=== PATIENT | male | born 1975 | race Two or more races ===

== ENCOUNTER 2024-04-29 23:43 | Inpatient (IN) | payer SELFPAY ==
[~2024-04-29] VITALS: Ht 182.9 cm; Wt 121.3 kg
[2024-04-30] VITALS (8 sets, daily range): BP systolic 189–222; BP diastolic 105–149; PULSE 84–106; RESP 16–22; TEMP 98–98.5; O2SAT 94–98
[2024-04-30 00:16] LABS: Basophils # (auto) 0.1 10 ^3/uL (0-0.2); Basophils % (auto) 0.9 % (0.0-2.0); Eosinophils # (auto) 0.4 10 ^3/uL (0-0.8); Eosinophils % (auto) 5.5 % (0.0-7.0); Hematocrit 48.4 % (41.0-53.0); Hemoglobin 16.8 g/dL (13.5-17.5); Lymphocytes # (auto) 1.6 10 ^3/uL (0.4-5.4); Mean Corpuscular Hemoglobin 30.6 pg (28.0-32.0); Mean Corpuscular Hgb Conc. 34.7 g/dL (32.0-36.0); Mean Corpuscular Volume 88.3 fL (80.0-100.0); Monocytes # (auto) 0.7 10 ^3/uL (0-1.3); Monocytes % (auto) 7.9 % (0.0-12.0); Neutrophils # (auto) 5.5 10 ^3/uL (1.6-8.6); Neutrophils % (auto) 66.7 % (37.0-80.0); Platelet Count (auto) 207 10^3/uL (140-450); Red Blood Cells 5.48 10^6/uL (4.5-5.90); Red Cell Distribution Width 14.4 % (11.8-14.3); White Blood Cell 8.2 10^3/uL (4.4-10.8)
[2024-04-30] MEDS: IOHEXOL 350 MG/ML 100ML IJ ONE (00:32)
[2024-04-30] MEDS: SODIUM CHLORIDE 0.9% 1,000 ML IV ONE (00:35)
[2024-04-30 00:38] LABS: Alanine Aminotransferase 20 U/L (7-40); Albumin 4.8 g/dL (3.2-4.8); Alkaline Phosphatase 81 U/L (46-116); Anion Gap 12 (5-15); Aspartate Aminotransferase 22 U/L (13-40); BUN/Creatinine Ratio 10.8 (10.0-20.0); Blood Urea Nitrogen 14 mg/dL (9-23); Calcium 9.7 mg/dL (8.7-10.4); Carbon Dioxide 22 mmol/L (20-31); Chloride 109 mmol/L (98-107); Glucose 96 mg/dL (74-106); Lipase 38 U/L (12-53); Potassium 3.2 mmol/L (3.5-5.1); Sodium 143 mmol/L (136-145); Total Protein 7.4 g/dL (5.7-8.2)
[2024-04-30 00:59] LABS: INR 1.05 (0.9-1.15); Prothrombin Time 11.1 sec (9.3-11.8)
[2024-04-30 01:33] LABS: Urine Bacteria None Seen /hpf (None Seen)
[2024-04-30] MEDS: hydrALAZINE HCL 20 MG/ML VL IV ONE ×3 (01:45→16:30)
[2024-04-30 01:58] LABS: Urine Blood Negative /uL (Negative); Urine Clarity Clear (Clear); Urine Color Colorless (Yellow); Urine Protein, UAD Negative (Negative); Urine Specific Gravity 1.022 (1.001-1.035); Urine Urobilinogen Normal (Negative); Urine WBC <1 /hpf (0 - 3); Urine pH 6.5 (5.0-9.0)
[2024-04-30] MEDS: LABETALOL HCL 20 MG/4 ML VL IV ONE (03:31)
[2024-04-30] MEDS ORDERED: MORPHINE SULFATE INJ 2 MG/ml SYRG IV PRN (05:30)
[2024-04-30] MEDS ORDERED: ONDANSETRON HCL 4 MG/2 ML VIAL IV PRN (05:30)
[2024-04-30] MEDS ORDERED: ACETAMINOPHEN 325 MG TAB PO PRN (05:30)
[2024-04-30] MEDS ORDERED: NITROGLYCERIN 0.4 MG SL TAB SL PRN (05:30)
[2024-04-30] MEDS: POTASSIUM CHL 20 Meq TABLET PO ONE (08:04)
[2024-04-30] MEDS: hydrALAZINE HCL 20 MG/ML VL IV PRN ×2 (08:15→16:22)
[2024-04-30] MEDS: ATORVASTATIN 20 MG TAB PO SCH (09:15)
[2024-04-30 09:35] LABS: Triglycerides 98 mg/dL (< 150)
[2024-04-30 09:36] LABS: LDL Cholesterol 141 mg/dL (< 100)
[2024-04-30 09:37] LABS: Cholesterol 202 mg/dL (< 200); HDL Cholesterol 45 mg/dL (40-59)
[2024-04-30] MEDS: POTASSIUM EFFERVESENT TAB 25 MEQ PO ONE (09:45)
[2024-04-30] MEDS: ASPirin 81 mg TAB PO SCH (10:00)
[2024-04-30] MEDS: CLOPIDOGREL BISULFATE 75 MG TAB PO SCH (10:00)
[2024-04-30] MEDS: LISINOPRIL 5 MG TAB PO SCH (10:00)
[2024-04-30] MEDS: SODIUM CHLORIDE 0.9% 1,000 ML IV SCH (10:54)
[2024-04-30] MEDS: ASPirin 300 MG RECTAL SUPP PR SCH (11:01)
[2024-04-30 11:34] LABS: Anion Gap 8 (5-15); Carbon Dioxide 24 mmol/L (20-31); Chloride 109 mmol/L (98-107); Potassium 3.1 mmol/L (3.5-5.1); Sodium 141 mmol/L (136-145)
[2024-04-30 11:35] LABS: Calcium 9.7 mg/dL (8.7-10.4)
[2024-04-30 11:40] LABS: BUN/Creatinine Ratio 9.2 (10.0-20.0); Blood Alcohol < 3.0 mg/dL (<10); Blood Urea Nitrogen 11 mg/dL (9-23); Glucose 110 mg/dL (74-106); Magnesium 2.1 mg/dL (1.6-2.6)
[2024-04-30 13:36] LABS: Amphetamine Screen, Urine Neg (NEGATIVE); Barbiturate Scree,Urine Neg (NEGATIVE); Benzodiazephine Screen, Urine Neg (NEGATIVE); Cannabinoid Screen, Urine Neg (NEGATIVE); Cocaine Screen, Urine Neg (NEGATIVE); Opiate Scree,Urine Neg (NEGATIVE); Phencyclidine Screen, Urine Neg (NEGATIVE)
[2024-04-30] MEDS: POTASSIUM CHLORIDE 40 MEQ, LIDOCAINE 1% (LOCAL ANESTH.) 4 ML in SODIUM CHL 0.9% 250 ML IV ONE (15:30)
[2024-04-30] MEDS: NIFEdipine ER 30 MG TAB PO ONE (16:30)
[2024-04-30] MEDS ORDERED: ATORVASTATIN 20 MG TAB PO SCH (22:00)
[2024-05-01] VITALS (13 sets, daily range): BP systolic 112–169; BP diastolic 64–142; PULSE 83–102; RESP 12–18; TEMP 97.2–98.3; O2SAT 95–98
[2024-05-01] MEDS: POTASSIUM CHLORIDE 40 MEQ, LIDOCAINE 1% (LOCAL ANESTH.) 4 ML in SODIUM CHL 0.9% 250 ML IV ONE (06:13)
[2024-05-01 07:03] LABS: Basophils # (auto) 0.1 10 ^3/uL (0-0.2); Basophils % (auto) 0.6 % (0.0-2.0); Eosinophils # (auto) 0.3 10 ^3/uL (0-0.8); Eosinophils % (auto) 2.5 % (0.0-7.0); Hematocrit 48.7 % (41.0-53.0); Hemoglobin 17.3 g/dL (13.5-17.5); Lymphocytes # (auto) 1.5 10 ^3/uL (0.4-5.4); Lymphocytes % (auto) 15.1 % (10.0-50.0); Mean Corpuscular Hemoglobin 31.3 pg (28.0-32.0); Mean Corpuscular Hgb Conc. 35.6 g/dL (32.0-36.0); Mean Corpuscular Volume 88.1 fL (80.0-100.0); Monocytes # (auto) 0.9 10 ^3/uL (0-1.3); Neutrophils # (auto) 7.4 10 ^3/uL (1.6-8.6); Neutrophils % (auto) 72.8 % (37.0-80.0); Nucleated Red Blood Cells % 0.1 %; Platelet Count (auto) 246 10^3/uL (140-450); Red Blood Cells 5.53 10^6/uL (4.5-5.90); Red Cell Distribution Width 14.5 % (11.8-14.3); White Blood Cell 10.2 10^3/uL (4.4-10.8)
[2024-05-01 07:20] LABS: Chloride 107 mmol/L (98-107); Sodium 140 mmol/L (136-145)
[2024-05-01 07:22] LABS: Anion Gap 12 (5-15); Carbon Dioxide 21 mmol/L (20-31)
[2024-05-01 07:23] LABS: BUN/Creatinine Ratio 8.6 (10.0-20.0); Blood Urea Nitrogen 10 mg/dL (9-23); Calcium 10.1 mg/dL (8.7-10.4); Glucose 115 mg/dL (74-106)
[2024-05-01] MEDS: fentaNYL CITRATE 100 MCG/2 ML VL IV ONE ×2 (09:15→10:18)
[2024-05-01] MEDS: LIDOCAINE VISCOUS 2% 15ML UD MT ONE (09:15)
[2024-05-01] MEDS: MIDAZOLAM HCL 2MG/2ML 2ml VIAL (1mg/ml) IV ONE ×2 (09:15→10:18)
[2024-05-01] MEDS: POTASSIUM CHLORIDE 60 MEQ, LIDOCAINE 1% (LOCAL ANESTH.) 6 ML in SODIUM CHL 0.9% 500 ML IV ONE (10:12)
[2024-05-01] MEDS: LIDOCAINE VISCOUS 2% 15ML UD PO ONE (10:15)
[2024-05-01] MEDS: NIFEdipine ER 30 MG TAB PO SCH (16:50)
[2024-05-02 01:00] VITALS: BP_SYST 155; BP_SYST 157; BP_DIAS 95; PULSE 79; RESP 17; TEMP 97.1; O2SAT 95
[2024-05-02 05:00] VITALS: BP_SYST 151; BP_SYST 154; BP_DIAS 94; BP_DIAS 95; PULSE 80; RESP 18; TEMP 97.3; O2SAT 95
[2024-05-02 09:28] VITALS: BP 156/94; PULSE 83; RESP 17; TEMP 97.6; O2SAT 97
[2024-05-02] MEDS: LISINOPRIL 20 MG TAB PO SCH (09:31)
[2024-05-02] MEDS: ASPirin 81 mg TAB PO SCH (09:32)
[2024-05-02 10:29] LABS: Chloride 107 mmol/L (98-107); Potassium 3.5 mmol/L (3.5-5.1); Sodium 139 mmol/L (136-145)
[2024-05-02 10:30] LABS: Anion Gap 7 (5-15); Carbon Dioxide 25 mmol/L (20-31)
[2024-05-02 10:35] LABS: BUN/Creatinine Ratio 9.2 (10.0-20.0); Blood Urea Nitrogen 11 mg/dL (9-23); Glucose 102 mg/dL (74-106)
[2024-05-02 13:00] VITALS: BP 134/83; PULSE 78; RESP 17; TEMP 97.5; O2SAT 98
[2024-05-02] MEDS ORDERED: hydrALAZINE HCL 20 MG/ML VL IV PRN (13:30)
[2024-05-02] MEDS ORDERED: ATOR20TA50 PO (13:36)
[2024-05-02] MEDS ORDERED: ASPI-325 PO (13:36)
[2024-05-02] MEDS ORDERED: NIFE1TAB31 PO (13:36)
[2024-05-02] MEDS ORDERED: CLOP75TA70 PO (13:36)
[2024-05-02] MEDS ORDERED: LISI20TA56 PO (13:36)
[2024-05-02 16:40] VITALS: PULSE 69
[2024-05-02 17:34] VITALS: BP 141/94; PULSE 76; RESP 16; TEMP 97.6; O2SAT 96
== END 2024-05-02 17:50 | disposition home or self-care (01) | DRG 282 ==
LOC: EDBD 23:43 → ER 23:43 → TELE 04-30 05:19 → TELE-WESTW 04-30 14:03
PROVIDERS: ADMIT Internal Medicine; ATTEND Internal Medicine
PROC: B24BZZ4 Ultrasonography of Heart with Aorta, Transesophageal (ICD-10-PCS; principal; 2024-05-01)
DX: I16.1 Hypertensive emergency (principal); I21.A1 Myocardial infarction type 2; F10.10 Alcohol abuse, uncomplicated; E78.5 Hyperlipidemia, unspecified; E87.6 Hypokalemia; E66.9 Obesity, unspecified; I34.0 Nonrheumatic mitral (valve) insufficiency; Y90.9 Presence of alcohol in blood, level not specified; Z82.3 Family history of stroke; Z82.49 Family history of ischemic heart disease and other diseases of the circulatory system; Z79.899 Other long term (current) drug therapy; Z79.02 Long term (current) use of antithrombotics/antiplatelets; Z68.36 Body mass index [BMI] 36.0-36.9, adult
CPT/HCPCS: 36415; 70496; 70551; 71045; 80048; 80053; 80061; 80307; 80320; 81001; 83605; 83690; 83735; 84443; 84484; 85025; 85610; 93005; 93312; 93886; 93970; 99152; 99291; G0378; J2003; J2250

== ENCOUNTER 2024-08-23 11:14 | Inpatient (IN) | payer MEDICAID ==
[~2024-08-23] VITALS: Ht 185.4 cm; Wt 106.4 kg
[~2024-08-23 11:14] MED LIST: ASPI-325 PO; ATOR20TA50 PO; CLOP75TA70 PO; LISI20TA56 PO; NIFE1TAB31 PO
[2024-08-23] MEDS: ASPirin 81 mg TAB PO ONE (11:30)
--- NOTE | 2024-08-23 11:52 | ED.PDOC ---
History of Present Illness HPI Comments 49-year-old male who comes in with chief complaint of right arm pain x2 days. The patient also states that his blood pressure got very high last night. He denies any nausea, vomiting or diarrhea. EN route, an IV Hep-Lock was established in the patient's blood pressure was measured to be extremely elevated. He denies any chest pain or shortness for breath. 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 Chief Complaint: High Blood Pressure Time Seen by MD: 11:24 Reviewed Notes: Nurses Notes, Paraffin Machine Operator Notes, Medications, Allergies (NKDA ) Allergies: Coded Allergies: NO KNOWN ALLERGIES (Unverified , 04/30/24) Home Meds Active Scripts Nifedipine (Nifedipine Er) 30 Mg Tab, 60 MG PO DAILY for 30 Days, #60 TAB 2 Refills Prov:PATRICIA TAN RESIDENT 05/02/24 Lisinopril (Lisinopril) 20 Mg Tab, 20 MG PO DAILY for 30 Days, #30 TAB 2 Refills Prov:PATRICIA TAN [facility] 05/02/24 Clopidogrel Bisulfate (CLOPIDOGREL) 75 Mg Tab, 75 MG PO DAILY for 21 Days, #21 TAB Prov:PATRICIA TAN [facility] 05/02/24 Atorvastatin Calcium (ATORVASTATIN CALCIUM) 20 Mg Tab, 40 MG PO HS for 30 Days, #60 TAB 2 Refills Prov:PATRICIA TAN [facility] 05/02/24 Aspirin (Aspirin Low Dose) 81 Mg Tab, 81 MG PO DAILY for 30 Days, #30 TAB Prov:PATRICIA TAN [facility] 05/02/24 Information Source: Patient, Emergency Med Personnel Mode of Arrival: EMS Severity: Moderate Timing: Days Duration: Since onset Prehospital treatment: IVF Location: Right arm pain with decreased range of motion Past Medical History PAST MEDICAL HISTORY: CVA, High Lipids, HTN Surgical History (Other): Right elbow surgery Family History Family History: Family hx of Cancer, Family hx of heart tracie Social History Smoker: Non-Smoker Alcohol: Denies ETOH Use Drugs: Denies Drug Use Lives In: Home Constitutional: denies: chills, diaphoresis, fatigue, fever, malaise, sweats, weakness, others EENTM: denies: blurred vision, double vision, ear bleeding, ear discharge, ear drainage, ear pain, ear ringing, eye pain, eye redness, hearing loss, mouth pain, mouth swelling, nasal discharge, nose bleeding, nose congestion, nose pain, photophobia, tearing, throat pain, throat swelling, voice changes, others Respiratory: denies: cough, hemoptysis, orthopnea, SOB at rest, shortness of breath, SOB with excertion, stridor, wheezing, others Cardiovascular: denies: chest pain, dizzy spells, diaphoresis, Dyspnea on exertion, edema, irregular heart beat, left arm pain, lightheadedness, palpitations, PND, syncope, others Gastrointestinal: denies: abdomen distended, abdominal pain, blood streaked bowels, constipated, diarrhea, dysphagia, difficulty swallowing, hematemesis, melena, nausea, poor appetite, poor fluid intake, rectal bleeding, rectal pain, vomiting, others Genitourinary: denies: burning, dysuria, flank pain, frequency, hematuria, incontinence, penile discharge, penile sore, pain, testicle pain, testicle swelling, urgency, others Neurological: denies: dizziness, fainting, headache, left sided numbness, left sided weakness, numbness, paresthesia, pre-existing deficit, right sided numbness, right sided weakness, seizure, speech problems, tingling, tremors, weakness, others Musculoskeletal: reports: others (Right arm pain); denies: back pain, gout, joint pain, joint swelling, muscle pain, muscle stiffness, neck pain Integumetry: denies: bruises, change in color, change in hair/nails, dryness, laceration, lesions, lumps, rash, wounds, others Allergic/Immunocompromised: denies: Difficulty Healing, Frequent Infections, Hives, Itching, others Hematologic/Lymphatic: denies: anemia, blood clots, easy bleeding, easy bruising, swollen glands, others Endocrine: denies: excessive hunger, excessive sweating, excessive thirst, excessive urination, flushing, intolerance to cold, intolerance to heat, unexplained weight gain, unexplained weight loss, others Psychiatric: denies: anxiety, bipolar disorder, depression, hopeless, panic disorder, schizophrenia, sleepless, suicidal, others Physical Exam General Appearance: Mild Distress HEENT: Normal ENT Inspection, Pharynx Normal, TMs Normal Neck: Full Range of Motion, Non-Tender, Normal, Normal Inspection Respiratory: Chest Non-Tender, Lungs Clear, No Accessory Muscle Use, No Respiratory Distress, Normal Breath Sounds Cardiovascular: No Edema, No JVD, No Murmur, No Gallop, Normal Peripheral Pulses, Regular Rate/Rhythm Breast Exam: Deferred Gastrointestinal: No Organomegaly, Non Tender, No Pulsatile Mass, Normal Bowel Sounds, Soft Genitalia: Deferred Pelvic: Deferred Rectal: Deferred Extremities: No calf tenderness, Normal capillary refill, Normal inspection, Normal range of motion, Non-tender, No pedal edema Musculoskeletal : Apperance: Normal Neurologic: Alert, air purifier servicer II-XII nml as Tested, Motor Weakness (Right arm weakness), No Motor Deficits, No Sensory Deficits, Other (Some mild slurred speech) Cerebellar Function: Unable to Test Reflexes: Normal Skin: Dry, Normal Color, Warm Lymphatic: No Adenopathy Was a procedure done? Was a procedure done?: No Differential Dx Considerations may include: Accelerated hypertension, TIA, CVA X-Ray, Labs, Meds, VS Vital Signs Date Time Temp Pulse Resp B/P (MAP) Pulse Ox O2 Delivery O2 Flow Rate FiO2 08/23/24 12:08 68 17 98 Room Air 08/23/24 12:08 98.5 68 17 145/111 (122) 98 98.5 08/23/24 11:32 98.0 76 18 193/142 (159) 100 Lab Test 08/23/24 11:43 Range/Units White Blood Count 9.4 4.4-10.8 10^3/uL Red Blood Count 4.60 4.5-5.90 10^6/uL Hemoglobin 13.9 13.5-17.5 g/dL Hematocrit 40.6 L 41.0-53.0 % Mean Corpuscular Volume 88.3 80.0-100.0 fL Mean Corpuscular Hemoglobin 30.3 28.0-32.0 pg Mean Corpuscular Hemoglobin Concent 34.3 32.0-36.0 g/dL Red Cell Distribution Width 14.1 11.8-14.3 % Platelet Count 257 140-450 10^3/uL Mean Platelet Volume 9.7 6.9-10.8 fL Neutrophils (%) (Auto) 79.9 37.0-80.0 % Lymphocytes (%) (Auto) 10.9 10.0-50.0 % Monocytes (%) (Auto) 6.4 0.0-12.0 % Eosinophils (%) (Auto) 2.4 0.0-7.0 % Basophils (%) (Auto) 0.4 0.0-2.0 % Neutrophils # (Auto) 7.5 1.6-8.6 10 ^3/uL Lymphocytes # (Auto) 1.0 0.4-5.4 10 ^3/uL Monocytes # (Auto) 0.6 0-1.3 10 ^3/uL Eosinophils # (Auto) 0.2 0-0.8 10 ^3/uL Basophils # (Auto) 0 0-0.2 10 ^3/uL Nucleated Red Blood Cells 0.0 % Troponin I High Sensitivity Pending IV Hep-Lock is being established The CBC and chemistry panel are within normal limits The blood pressure remains elevated at 140 5/111 The initial was 193/142 The patient is being given clonidine for the accelerated hypertension The patient will be admitted The patient was had a CVA in the past. We are going to get another CT scan to rule out CVA The patient will be admitted at this time Time of 1ST Reevaluation: 12:17 Reevaluation 1ST: Unchanged Patient Education/Counseling: Diagnosis, Treatment, Prognosis Family Education/Counseling: No Family Present Departure 1 Departure Time of Disposition: 12:17 Impression: Primary Impression: Right arm pain Additional Impression: Accelerated hypertension Disposition: 09 ADMITTED INPATIENT Admit to: Med Surg Condition: Fair Critical Care Note Critical Care Time?: Yes (35 min-critical care time only) Stability Stability form required: Yes Unstable for transfer: Telemetry monitoring (Telemetry monitoring required), ED Physician Assesment (Clinical assesment) Heart Score Heart Score: Heart Score Response (Comments) Value History N/A 0 EKG N/A 0 Age N/A 0 Risk Factors N/A 0 Troponin N/A 0 Total 0 CHARANJIT VARGAS MD Aug 23, 2024 11:52
[2024-08-23 12:09] LABS: Basophils # (auto) 0 10 ^3/uL (0-0.2); Basophils % (auto) 0.4 % (0.0-2.0); Eosinophils # (auto) 0.2 10 ^3/uL (0-0.8); Eosinophils % (auto) 2.4 % (0.0-7.0); Hematocrit 40.6 % (41.0-53.0); Hemoglobin 13.9 g/dL (13.5-17.5); Lymphocytes % (auto) 10.9 % (10.0-50.0); Mean Corpuscular Hemoglobin 30.3 pg (28.0-32.0); Mean Corpuscular Hgb Conc. 34.3 g/dL (32.0-36.0); Mean Corpuscular Volume 88.3 fL (80.0-100.0); Monocytes # (auto) 0.6 10 ^3/uL (0-1.3); Monocytes % (auto) 6.4 % (0.0-12.0); Neutrophils # (auto) 7.5 10 ^3/uL (1.6-8.6); Neutrophils % (auto) 79.9 % (37.0-80.0); Platelet Count (auto) 257 10^3/uL (140-450); Red Cell Distribution Width 14.1 % (11.8-14.3); White Blood Cell 9.4 10^3/uL (4.4-10.8)
[2024-08-23] MEDS: MORPHINE SULFATE 4 MG/ML SYR/VIAL IV ONE (12:15)
[2024-08-23] MEDS: ONDANSETRON HCL 4 MG/2 ML VIAL IV ONE (12:15)
[2024-08-23] MEDS: cloNIDine HCL 0.1 MG TAB PO ONE (12:18)
[2024-08-23 13:08] LABS: Sodium 139 mmol/L (136-145)
[2024-08-23 13:09] LABS: Anion Gap 8 (5-15); Carbon Dioxide 23 mmol/L (20-31)
[2024-08-23 13:15] LABS: BUN/Creatinine Ratio 11.8 (10.0-20.0); Blood Urea Nitrogen 11 mg/dL (9-23)
[2024-08-23 13:24] LABS: Chloride 108 mmol/L (98-107); Glucose 107 mg/dL (74-106); Potassium 3.5 mmol/L (3.5-5.1)
[2024-08-23] MEDS ORDERED: ACETAMINOPHEN 325 MG TAB PO PRN (22:30)
[2024-08-24] VITALS (7 sets, daily range): BP systolic 134–149; BP diastolic 80–93; PULSE 55–80; RESP 13–20; TEMP 97.4–98; O2SAT 96–99
[2024-08-24] MEDS: hydrALAZINE HCL 20 MG/ML VL IV ONE (00:16)
[2024-08-24] MEDS: POTASSIUM EFFERVESENT TAB 25 MEQ PO ONE (00:29)
[2024-08-24] MEDS: CARVEDILOL 3.125 MG TAB PO ONE (00:29)
[2024-08-24] MEDS: LOSARTAN POTASSIUM 50 MG TAB PO ONE (00:29)
[2024-08-24] MEDS: ASPirin 81 mg TAB PO ONE (00:29)
[2024-08-24] MEDS: ATORVASTATIN 20 MG TAB PO ONE (00:29)
[2024-08-24] MEDS ORDERED: hydrALAZINE HCL 20 MG/ML VL IV PRN (00:30)
--- NOTE | 2024-08-24 01:38 | DVH ---
EXAM: XY CHEST TWO VIEWS ROUTINE CLINICAL HISTORY: cough TECHNIQUE: Frontal and lateral views of the chest WID: COMPARISON: None FINDINGS: Lines and tubes: None Chest: The heart size and pulmonary vasculature is within normal limits. No pleural effusion, pneumothorax, or consolidation. Lobular prominence of the bilateral dane. The osseous structures are grossly intact. IMPRESSION: 1. No acute cardiopulmonary abnormality. 2. Lobular prominence of the bilateral dane which could be due to prominent hilar vasculature or lymp hadenopathy. This could be further evaluated with nonemergent CT chest if clinically indicated
[2024-08-24 01:42] LABS: Magnesium 2.2 mg/dL (1.6-2.6)
--- NOTE | 2024-08-24 01:48 | DVH ---
CLINICAL HISTORY: Hypertensive urgency TECHNIQUE: Helical imaging carried out from skull base to vertex without intravenous contrast. This e xam was performed according to our departmental dose optimization program. Up-to-date CT equipment an d radiation dose reduction techniques are utilized as appropriate. CTDIVol: 58.38 mGy DLP: 1149.1 mGy-cm WID: COMPARISON: MRI brain from 04/27/2024 FINDINGS: Moderate patchy low attenuation throughout the cerebral white matter consistent with nonspecific whit e matter disease. Chronic small bilateral basal ganglia, left caudate head and body infarcts. The ventricles and subarachnoid spaces are normal in size and configuration. There is no midline lester ft or mass effect. The estrada white matter interfaces are otherwise maintained. The basal cisterns are patent. There is no evidence of acute intracranial hemorrhage or extra-axial fluid collection. The ma stoid air cells and visualized paranasal sinuses are well-aerated aside from trace right maxillary si nus mucosal thickening. IMPRESSION: 1. No acute intracranial abnormality. 2. Moderate patchy low-attenuation in the cerebral white matter. DDX includes early chronic microvasc ular ischemia, demyelinating process such as multiple sclerosis, or sequelae of other remote infectio us or inflammatory insult. 3. Chronic small bilateral basal ganglia, and left caudate head and body infarcts.
--- NOTE | 2024-08-24 01:50 | DVHHPRES ---
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 According to the patient, he took new medication carvedilol along wi th his old medication losartan in the a.m., later in the day he noted his blood pressure to be 200/?, he subsequently called his PCP who told the patient go to the ER. Patient notes having dietary indiscretions and consuming increased salt as of late. On review of systems patient is complaining of palpitations. Notes intentional weight loss of 20 lb in the last 3 months. 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, hypertension and obesity Past Surgical History Right elbow surgery Past Social History Smoking: Denies Alcohol: Quit in April 2024, prior to that was drinking 3 large alcoholic drinks every other day Drugs: Denies Review of Systems Constitutional: No: Fever, Chills, Sweats, Weakness, Malaise, Other Eyes: No: Pain, Vision change, Conjunctivae inflammation, Eyelid inflammation, Other, Redness ENT: No: Ear pain, Ear discharge, Nose pain, Nose discharge, Nose congestion, Mouth pain, Mouth swelling, Throat pain, Throat swelling, Other Respiratory: No: Cough, Dry, Shortness of breath, SOB with excertion, Wheezing, Hemoptysis, Pleuritic Pain, Sputum, Wheezing, Other Cardiovascular: Palpitations; No: Chest Pain, Orthopnea, Paroxysmal Noc. Dyspnea, Edema, Lt Headedness, Other Gastrointestinal: No: Nausea, Vomiting, Abdominal Pain, Diarrhea, Constipation, Melena, Hematochezia, Other Genitourinary: No Dysuria, No Frequency, No Incontinence, No Hematuria, No Retention, No Other Musculoskeletal: No: other, neck pain, shoulder pain, arm pain, back pain, hand pain, leg pain, foot pain Skin: No: Rash, Lesions, Jaundice, Bruising, Other Neurological: No: Weakness, Numbness, Incoordination, Change in speech, Confusion, Seizures, Other Allergies: Coded Allergies: NOAH Inhibitors (Verified Allergy, Unknown, 08/24/24) Medications Current Medications Medications Dose Ordered Sig/Joni Route Start Time Stop Time Status Last Admin Dose Admin Acetaminophen 650 mg Q6HP PRN PO 08/23/24 22:30 Losartan Potassium 50 mg DAILY PO 08/24/24 10:00 Carvedilol 6.25 mg Q12HR PO 08/24/24 10:00 Aspirin 81 mg DAILY PO 08/24/24 10:00 Atorvastatin Calcium 20 mg HS PO 08/24/24 22:00 Hydralazine HCl 10 mg Q6HP PRN IV 08/24/24 00:30 Exam Vital Signs Vital Signs Date Time Temp Pulse Resp B/P (MAP) Pulse Ox O2 Delivery O2 Flow Rate FiO2 08/24/24 01:27 75 177/117 08/23/24 23:57 18 98 08/23/24 19:33 97.7 97.7 08/23/24 13:28 Room Air* 0 21 General Appearance: Alert, Oriented X3, Cooperative, No acute distress HEENT: Atraumatic, PERRLA, EOMI, Mucous membr. moist/pink Respiratory: Clear to auscultation, Normal air movement Cardiovascular: Regular rate, Normal S1, Normal S2 Abdominal: Normal bowel sounds, Soft, No tenderness Extremities: No clubbing, No cyanosis, Other (Trace lower extremity edema) Skin: No rashes, No significant lesion Neuro: Normal gait, Normal speech, Strength at 5/5 X4 ext, Normal tone, Sensation intact Psych/Mental Status: Mental status NL, Mood NL Labs/Xrays Labs Test 08/24/24 01:08 08/23/24 11:43 Range/Units Magnesium Level 2.2 1.6-2.6 mg/dL Troponin I High Sensitivity 34 </=54 ng/L B-Type Natriuretic Peptide 89.09 0-100 pg/mL Triglycerides Level 78 < 150 mg/dL Cholesterol Level 128 < 200 mg/dL LDL Cholesterol 76 < 100 mg/dL HDL Cholesterol 37 L 40-59 mg/dL White Blood Count 9.4 4.4-10.8 10^3/uL Red Blood Count 4.60 4.5-5.90 10^6/uL Hemoglobin 13.9 13.5-17.5 g/dL Hematocrit 40.6 L 41.0-53.0 % Mean Corpuscular Volume 88.3 80.0-100.0 fL Mean Corpuscular Hemoglobin 30.3 28.0-32.0 pg Mean Corpuscular Hemoglobin Concent 34.3 32.0-36.0 g/dL Red Cell Distribution Width 14.1 11.8-14.3 % Platelet Count 257 140-450 10^3/uL Mean Platelet Volume 9.7 6.9-10.8 fL Neutrophils (%) (Auto) 79.9 37.0-80.0 % Lymphocytes (%) (Auto) 10.9 10.0-50.0 % Monocytes (%) (Auto) 6.4 0.0-12.0 % Eosinophils (%) (Auto) 2.4 0.0-7.0 % Basophils (%) (Auto) 0.4 0.0-2.0 % Neutrophils # (Auto) 7.5 1.6-8.6 10 ^3/uL Lymphocytes # (Auto) 1.0 0.4-5.4 10 ^3/uL Monocytes # (Auto) 0.6 0-1.3 10 ^3/uL Eosinophils # (Auto) 0.2 0-0.8 10 ^3/uL Basophils # (Auto) 0 0-0.2 10 ^3/uL Nucleated Red Blood Cells 0.0 % Sodium Level 139 136-145 mmol/L Potassium Level 3.5 3.5-5.1 mmol/L Chloride Level 108 H 98-107 mmol/L Carbon Dioxide Level 23 20-31 mmol/L Anion Gap 8 5-15 Blood Urea Nitrogen 11 9-23 mg/dL Creatinine 0.93 0.700-1.30 mg/dL Glomerular Filtration Rate Calc 102 >90 mL/min BUN/Creatinine Ratio 11.8 10.0-20.0 Serum Glucose 107 H 74-106 mg/dL Calcium Level 10.0 8.7-10.4 mg/dL Assessment/Plan Assessment/Plan Hypertensive urgency History of CVA - Head CT: No acute intracranial abnormality. Moderate patchy low-attenuation in the cerebral white matter. DDX includes early chronic microvascular ischemia, demyelinating process such as multiple sclerosis, or sequelae of other remote infectious or inflammatory insult. Chronic small bilateral basal ganglia, and left caudate head and body infarcts. - CXR: No acute cardiopulmonary abnormality. Lobular prominence of the bilateral dane which could be due to prominent hilar vasculature or lymphadenopathy. This could be further evaluated with nonemergent CT chest if clinically indicated - IV hydralazine 10 mg once - IV hydralazine 10 mg as needed for SBP greater than 170 - resume home medication losartan 50 mg - carvedilol 6.25 mg b.i.d. - resumed home medication aspirin and atorvastatin DVT prophylaxis: SCDs Goals of care: Full code, discussed for >16 minutes on 08/23/2024 Plan discussed with patient Plan discussed with Dr. Barr Plan discussed with: Patient, Other (RN) My Orders Orders - COOPER GONZALEZ RESIDENT Procedure Category Date Status Time Admit ADMIT 08/23/24 Transmitted 22:18 Code Status CODE 08/23/24 Transmitted 22:18 Vital Signs [facility] 08/23/24 In Process 22:18 Review Orders With [facility] 08/23/24 In Process Adm. 22:18 Acetaminophen Tablet PHA 08/23/24 In Process (Tylenol Tablet) 22:30 Notify Md Of Changes [facility] 08/23/24 In Process From Base 22:18 Advance Directive [facility] 08/23/24 In Process 22:18 Chest Two Views XY 08/24/24 Resulted Routine 04:00 Urinalysis LAB 08/23/24 Logged 22:18 Patient Condition ORDERS 08/23/24 Transmitted 22:18 Allergies [facility] 08/23/24 In Process 22:18 Drug Screen LAB 08/23/24 Logged 22:18 Sequential [facility] 08/23/24 In Process Compression Device Stat Ekg For Chest [facility] 08/23/24 In Process Pain 22:18 Notify Md Of Changes [facility] 08/23/24 In Process From Base 22:18 Allergies [facility] 08/23/24 In Process 22:18 Electrocardigram EKG 08/24/24 Logged 00:[address] 08/24/24 Resulted 00:03 Urinalysis LAB 08/24/24 Logged 00:03 Thyroid Stimulating LAB 08/24/24 In Process Hormone 00:03 Losartan Tablet PHA 08/24/24 In Process (Cozaar Tablet) 10:00 Carvedilol Tablet PHA 08/24/24 In Process (Coreg Tablet) 10:00 Aspirin Tablet PHA 08/24/24 In Process 10:00 Atorvastatin (Lipitor) PHA 08/24/24 In Process 22:00 Cardiac DIET 08/24/24 Transmitted Diet-2gna,Lofat,Lochol Breakfast Hydralazine Injection PHA 08/24/24 In Process (Apresoline Inject 00:30 Date of Service: Aug 23, 2024 Billing Provider: DOROTHY LOYA MD Common Visit Codes: [id number] INP/OBS CARE (HIGH) COOPER GONZALEZ RESIDENT Aug 24, 2024 01:50 DOROTHY LOYA MD Aug 29, 2024 16:03
[2024-08-24 05:03] LABS: Basophils # (auto) 0 10 ^3/uL (0-0.2); Basophils % (auto) 0.6 % (0.0-2.0); Eosinophils # (auto) 0.2 10 ^3/uL (0-0.8); Hematocrit 44.4 % (41.0-53.0); Hemoglobin 15.1 g/dL (13.5-17.5); Lymphocytes # (auto) 1.3 10 ^3/uL (0.4-5.4); Lymphocytes % (auto) 17.2 % (10.0-50.0); Mean Corpuscular Hemoglobin 30.5 pg (28.0-32.0); Mean Corpuscular Volume 89.9 fL (80.0-100.0); Monocytes # (auto) 0.6 10 ^3/uL (0-1.3); Monocytes % (auto) 7.7 % (0.0-12.0); Neutrophils # (auto) 5.5 10 ^3/uL (1.6-8.6); Neutrophils % (auto) 71.5 % (37.0-80.0); Nucleated Red Blood Cells % 0.1 %; Platelet Count (auto) 260 10^3/uL (140-450); Red Blood Cells 4.94 10^6/uL (4.5-5.90); Red Cell Distribution Width 14.8 % (11.8-14.3); White Blood Cell 7.6 10^3/uL (4.4-10.8)
[2024-08-24 05:13] LABS: Potassium 4.2 mmol/L (3.5-5.1); Sodium 143 mmol/L (136-145)
[2024-08-24 05:15] LABS: Anion Gap 16 (5-15)
[2024-08-24 05:20] LABS: BUN/Creatinine Ratio 11.8 (10.0-20.0); Blood Urea Nitrogen 13 mg/dL (9-23); Glucose 92 mg/dL (74-106)
[2024-08-24 05:21] LABS: Calcium 10.9 mg/dL (8.7-10.4); Carbon Dioxide 19 mmol/L (20-31); Chloride 108 mmol/L (98-107)
[2024-08-24] MEDS ORDERED: LOSA-534 PO (06:59)
[2024-08-24] MEDS ORDERED: CARV3.1240 PO (07:00)
[2024-08-24] MEDS: CARVEDILOL 3.125 MG TAB PO SCH (09:57)
[2024-08-24] MEDS: ASPirin 81 mg TAB PO SCH (09:57)
[2024-08-24] MEDS ORDERED: LOSARTAN POTASSIUM 50 MG TAB PO SCH ×2 (10:00)
[2024-08-24] MEDS ORDERED: diphenhdrAMINE-ZINC ACETATE 1 APPLIC APPL TOP PRN (10:45)
[2024-08-24] MEDS: amLODIPine BESYLATE 5 MG TAB PO SCH (11:13)
[2024-08-24] MEDS: hydrOXYzine HCL 10 MG TAB PO PRN (11:16)
--- NOTE | 2024-08-24 13:30 | DVH ---
MRI BRAIN WITHOUT CONTRAST CLINICAL HISTORY: rule out MS TECHNIQUE: Multiplanar, multisequence MR images of the brain without intravenous contrast. Comparison: MRI BRAIN HEAD WO CONTRAST on DOS: 04/30/24 FINDINGS: Redemonstrated are hyperintense T2 signal changes in the supratentorial white matter, mostly in the p eriventricular and deep white matter. There are hyperintense T2 foci which have lau's finger-like appearance and oriented orthogonal to the leslie of the lateral ventricles. There are cystic areas ce ntrally in the involved areas in the bilateral shah radiata which may represent burnt-out plaques v ersus chronic lacunar infarcts. There are mild patchy signal changes involving the corpus callosum. There is no significant callosal atrophy. There is no restricted diffusion. There is no evidence of hemorrhage, mass, mass effect or midline s hift. There is no hydrocephalus or extra-axial fluid collection. The visualized intracranial vasculat ure demonstrates appropriate flow-voids. The sagittal midline structures appear unremarkable. The and rescue fire fighter crash fire niocervical junction is within normal limits. The calvarium demonstrates normal marrow signal. The pa ranasal sinuses and mastoid air cells are clear. IMPRESSION: 1. Redemonstrated are hyperintense T2 signal changes in the supratentorial white matter, mostly in th e periventricular and deep white matter. These have the appearance of demyelinating plaques. Clinical and laboratory correlation is recommended. 2. There are cystic areas centrally in the involved areas in the bilateral shah radiata which may r epresent burnt-out plaques versus chronic lacunar infarcts. HS:Y
[2024-08-24] MEDS: NIFEdipine ER 30 MG TAB PO SCH (14:28)
[2024-08-24] MEDS: NIFEdipine ER 30 MG TAB PO ONE (16:20)
[2024-08-24] MEDS: hydroCHLOROthiazide 25 MG TAB PO SCH (16:21)
[2024-08-24 16:43] LABS: Urine Bacteria None Seen /hpf (None Seen)
[2024-08-24 16:58] LABS: Urine Blood Negative /uL (Negative); Urine Clarity Clear (Clear); Urine Color Colorless (Yellow); Urine Protein, UAD Negative (Negative); Urine Specific Gravity 1.005 (1.001-1.035); Urine Squamous Epithelial Cell None Seen /hpf (<5); Urine Urobilinogen Normal (Negative); Urine pH 6.5 (5.0-9.0)
[2024-08-24 17:07] LABS: Amphetamine Screen, Urine Neg (NEGATIVE); Barbiturate Scree,Urine Neg (NEGATIVE); Benzodiazephine Screen, Urine Neg (NEGATIVE); Cannabinoid Screen, Urine Neg (NEGATIVE); Cocaine Screen, Urine Neg (NEGATIVE); Opiate Scree,Urine Neg (NEGATIVE); Phencyclidine Screen, Urine Neg (NEGATIVE)
--- NOTE | 2024-08-24 19:04 | DVHPNRES ---
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 According to the patient, he took new medication carvedilol along with his old medication losartan in the a.m., later in the day he noted his blood pressure to be 200/?, he subsequently called his PCP who told the patient go to the ER. Patient notes having dietary indiscretions and consuming increased salt as of late. On review of systems patient is complaining of palpitations. Notes intentional weight loss of 20 lb in the last 3 months. 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, hypertension and obesity Past Surgical History Right elbow surgery Past Social History Smoking: Denies Alcohol: Quit in April 2024, prior to that was drinking 3 large alcoholic drinks every other day Drugs: Denies Objective vital signs Vital Sign Date Time Temp Pulse Resp B/P (MAP) Pulse Ox O2 Delivery O2 Flow Rate FiO2 08/24/24 17:00 97.5 68 16 149/82 (104) 98 97.5 08/24/24 08:02 Room Air* 0 21 medications Current Medications Medications Dose Ordered Sig/Joni Route Start Time Stop Time Status Last Admin Dose Admin Acetaminophen 650 mg Q6HP PRN PO 08/23/24 22:30 Aspirin 81 mg DAILY PO 08/24/24 10:00 08/24/24 09:57 81 MG Atorvastatin Calcium 20 mg HS PO 08/24/24 22:00 Hydroxyzine HCl 10 mg Q6HP PRN PO 08/24/24 10:45 08/24/24 11:16 10 MG Zinc Acetate/ Diphenhydramine 1 applic Q6HP PRN TOP 08/24/24 10:45 Losartan Potassium 50 mg DAILY PO 08/25/24 10:00 Hydrochlorothiazide 12.5 mg DAILY PO 08/24/24 15:00 08/24/24 16:21 12.5 MG Nifedipine 60 mg DAILY PO 08/25/24 10:00 Examination General Appearance: Alert, Oriented X3, Cooperative, No acute distress HEENT: Atraumatic, PERRLA, EOMI, Mucous membr. moist/pink Respiratory: Clear to auscultation, Normal air movement Cardiovascular: Regular rate, Normal S1, Normal S2 Abdominal: Normal bowel sounds, Soft, No tenderness Extremities: No clubbing, No cyanosis, Other (Trace lower extremity edema) Skin: No rashes, No significant lesion Neuro: Normal gait, Normal speech, Strength at 5/5 X4 ext, Normal tone, Sensation intact Psych/Mental Status: Mental status NL, Mood NL laboratory and microbiology Laboratory Tests 08/24/24 01:08 Test 08/24/24 01:08 Range/Units Serum Glucose 92 74-106 mg/dL Problem List/Assessment/Plan Problem List/Assessment/Plan Hypertensive urgency History of CVA - MRI: Redemonstrated are hyperintense T2 signal changes in the supratentorial white matter, mostly in the periventricular and deep white matter. These have the appearance of demyelinating plaques. Clinical and laboratory correlation is recommended. There are cystic areas centrally in the involved areas in the bilateral shah radiata which may represent burnt-out plaques versus chronic lacunar infarcts. - Head CT: No acute intracranial abnormality. Moderate patchy low-attenuation in the cerebral white matter. DDX includes early chronic microvascular ischemia, demyelinating process such as multiple sclerosis, or sequelae of other remote infectious or inflammatory insult. Chronic small bilateral basal ganglia, and left caudate head and body infarcts. - CXR: No acute cardiopulmonary abnormality. Lobular prominence of the bilateral dane which could be due to prominent hilar vasculature or lymphadenopathy. This could be further evaluated with nonemergent CT chest if clinically indicated - resume home medication losartan 50 mg - DC carvedilol 6.25 mg b.i.d. (possible allergic reaction) - amlodipine was changed to nifedipine 60 mg daily -Hydroxyzine oral - resumed home medication aspirin and atorvastatin Patient denies any sensory/motor deficit or symptoms, the only sequlae of his stroke was dysarthria DVT prophylaxis: SCDs Goals of care: Full code, discussed for >16 minutes on 08/23/2024 Plan discussed with patient Plan discussed with Dr. Solorio Plan discussed with: Patient, Other (rn) My Orders My Orders Orders - DANIELLA MICHAUD Procedure Category Date Status Time Hydroxyzine Oral PHA 08/24/24 In Process (Vistaril Oral) 10:45 Diphenhdramine-Zinc PHA 08/24/24 In Process Cream (Benadryl Crea 10:45 Losartan Tablet PHA 08/25/24 In Process (Cozaar Tablet) 10:00 Brain Head Wo Contrast MRI 08/24/24 Resulted 12:05 Hydrochlorothiazide PHA 08/24/24 In Process Tablet (Hydrochlorot 15:00 Nifedipine Er PHA 08/25/24 In Process (Procardia Xl 10:00 Renin Activity And LAB 08/24/24 In Process Aldosterone 16:56 Date of Service: Aug 24, 2024 Billing Provider: ALICIA SOLORIO MD Common Visit Codes: [id number] INP/OBS CARE(HIGH) DANIELLA MICHAUD RESIDENT Aug 24, 2024 19:04 ALICIA SOLORIO MD Aug 27, 2024 09:43
[2024-08-24] MEDS: ATORVASTATIN 20 MG TAB PO SCH (21:08)
[2024-08-25 00:55] VITALS: BP 134/84; PULSE 76; RESP 13; TEMP 98; O2SAT 98
[2024-08-25 04:56] VITALS: BP 133/85; PULSE 72; RESP 12; TEMP 97.8; O2SAT 98
[2024-08-25 06:16] LABS: Basophils # (auto) 0 10 ^3/uL (0-0.2); Basophils % (auto) 0.4 % (0.0-2.0); Eosinophils # (auto) 0.4 10 ^3/uL (0-0.8); Eosinophils % (auto) 4.9 % (0.0-7.0); Hematocrit 41.5 % (41.0-53.0); Hemoglobin 14.7 g/dL (13.5-17.5); Lymphocytes # (auto) 1.5 10 ^3/uL (0.4-5.4); Lymphocytes % (auto) 18.6 % (10.0-50.0); Mean Corpuscular Hemoglobin 31.2 pg (28.0-32.0); Mean Corpuscular Hgb Conc. 35.3 g/dL (32.0-36.0); Mean Corpuscular Volume 88.2 fL (80.0-100.0); Monocytes # (auto) 0.7 10 ^3/uL (0-1.3); Monocytes % (auto) 8.7 % (0.0-12.0); Neutrophils # (auto) 5.3 10 ^3/uL (1.6-8.6); Neutrophils % (auto) 67.4 % (37.0-80.0); Nucleated Red Blood Cells % 0.1 %; Platelet Count (auto) 241 10^3/uL (140-450); Red Blood Cells 4.71 10^6/uL (4.5-5.90); Red Cell Distribution Width 14.4 % (11.8-14.3); White Blood Cell 7.9 10^3/uL (4.4-10.8)
[2024-08-25 06:51] LABS: Alanine Aminotransferase 36 U/L (7-40); Anion Gap 11 (5-15); BUN/Creatinine Ratio 12.2 (10.0-20.0); Blood Urea Nitrogen 12 mg/dL (9-23); Calcium 10.2 mg/dL (8.7-10.4); Carbon Dioxide 25 mmol/L (20-31); Chloride 104 mmol/L (98-107); Glucose 85 mg/dL (74-106); Sodium 140 mmol/L (136-145)
[2024-08-25 06:52] LABS: Albumin 4.4 g/dL (3.2-4.8); Alkaline Phosphatase 124 U/L (46-116); Aspartate Aminotransferase 21 U/L (13-40); Bilirubin, Total 1.1 mg/dL (0.2-1.0); Potassium 3.3 mmol/L (3.5-5.1); Total Protein 6.8 g/dL (5.7-8.2)
[2024-08-25 08:00] VITALS: PULSE 63
[2024-08-25 09:00] VITALS: BP 133/85; PULSE 63; RESP 20; TEMP 97.8; O2SAT 98
[2024-08-25] MEDS: LOSARTAN POTASSIUM 50 MG TAB PO SCH (09:31)
[2024-08-25] MEDS: NIFEdipine ER 30 MG TAB PO SCH (09:31)
[2024-08-25] MEDS ORDERED: NIFEdipine ER 30 MG TAB PO SCH (10:00)
[2024-08-25] MEDS ORDERED: LOSARTAN POTASSIUM 50 MG TAB PO SCH (10:00)
[2024-08-25] MEDS ORDERED: hydroCHLOROthiazide 25 MG TAB PO SCH (10:00)
[2024-08-25] MEDS ORDERED: HYDR25TA5 PO (11:50)
[2024-08-25] MEDS ORDERED: LOSA-534 PO (11:50)
[2024-08-25] MEDS ORDERED: NIFE1TAB31 PO (11:50)
[2024-08-25 13:00] VITALS: BP 117/75; PULSE 64; RESP 18; TEMP 98; O2SAT 94
[2024-08-25 13:30] VITALS: BP 117/75; PULSE 64; RESP 18; TEMP 98; O2SAT 94
[2024-08-25] MEDS: POTASSIUM CHL 20 Meq TABLET PO ONE (13:45)
--- NOTE | 2024-08-25 15:48 | DVHDS2 ---
Discharge Summary Date of Admission Aug 23, 2024 at 22:18 Date of Discharge: Aug 25, 2024 Admitting Diagnosis HTN URGENCY Labs/Diagnostic Data: Laboratory Results Test 08/25/24 04:50 08/24/24 18:09 08/24/24 01:08 08/24/24 00:00 White Blood Count 7.9 10^3/uL (4.4-10.8) Red Blood Count 4.71 10^6/uL (4.5-5.90) Hemoglobin 14.7 g/dL (13.5-17.5) Hematocrit 41.5 % (41.0-53.0) Mean Corpuscular Volume 88.2 fL (80.0-100.0) Mean Corpuscular Hemoglobin 31.2 pg (28.0-32.0) Mean Corpuscular Hemoglobin Concent 35.3 g/dL (32.0-36.0) Red Cell Distribution Width 14.4 % (11.8-14.3) Platelet Count 241 10^3/uL (140-450) Mean Platelet Volume 10.0 fL (6.9-10.8) Neutrophils (%) (Auto) 67.4 % (37.0-80.0) Lymphocytes (%) (Auto) 18.6 % (10.0-50.0) Monocytes (%) (Auto) 8.7 % (0.0-12.0) Eosinophils (%) (Auto) 4.9 % (0.0-7.0) Basophils (%) (Auto) 0.4 % (0.0-2.0) Neutrophils # (Auto) 5.3 10 ^3/uL (1.6-8.6) Lymphocytes # (Auto) 1.5 10 ^3/uL (0.4-5.4) Monocytes # (Auto) 0.7 10 ^3/uL (0-1.3) Eosinophils # (Auto) 0.4 10 ^3/uL (0-0.8) Basophils # (Auto) 0 10 ^3/uL (0-0.2) Nucleated Red Blood Cells 0.1 % Sodium Level 140 mmol/L (136-145) Potassium Level 3.3 mmol/L (3.5-5.1) Chloride Level 104 mmol/L (98-107) Carbon Dioxide Level 25 mmol/L (20-31) Anion Gap 11 (5-15) Blood Urea Nitrogen 12 mg/dL (9-23) Creatinine 0.98 mg/dL (0.700-1.30) Glomerular Filtration Rate Calc 96 mL/min (>90) BUN/Creatinine Ratio 12.2 (10.0-20.0) Serum Glucose 85 mg/dL (74-106) Calcium Level 10.2 mg/dL (8.7-10.4) Total Bilirubin 1.1 mg/dL (0.2-1.0) Aspartate Amino Transferase (AST) 21 U/L (13-40) Alanine Aminotransferase (ALT) 36 U/L (7-40) Alkaline Phosphatase 124 U/L (46-116) Total Protein 6.8 g/dL (5.7-8.2) Albumin 4.4 g/dL (3.2-4.8) Magnesium Level 2.2 mg/dL (1.6-2.6) Troponin I High Sensitivity 34 ng/L (</=54) B-Type Natriuretic Peptide 89.09 pg/mL (0-100) Triglycerides Level 78 mg/dL (< 150) Cholesterol Level 128 mg/dL (< 200) LDL Cholesterol 76 mg/dL (< 100) HDL Cholesterol 37 mg/dL (40-59) Thyroid Stimulating Hormone (TSH) 2.52 uIU/mL (0.55-4.78) Urine Color Colorless (Yellow) Urine Clarity Clear (Clear) Urine pH 6.5 (5.0-9.0) Urine Specific [place] 1.005 (1.001-1.035) Urine Protein Negative (Negative) Urine Ketones Negative (Negative) Urine Blood Negative /uL (Negative) Urine Nitrite Negative (Negative) Urine Bilirubin Negative (Negative) Urine Urobilinogen Normal mg/dL (Negative) Urine Leukocyte Esterase Negative /uL (Negative) Urine RBC None seen /hpf (0 - 3) Urine Microscopic WBC /HPF (0-3) Urine Squamous Epithelial Cells None seen /hpf (<5) Urine Bacteria None seen /hpf (None Seen) Urine Glucose Normal mg/dL (Normal) Urine Opiates Screen Neg (NEGATIVE) Urine Fentanyl Screen Neg (NEGATIVE) Urine Barbiturates Screen Neg (NEGATIVE) Urine Phencyclidine Screen Neg (NEGATIVE) Urine Amphetamines Screen Neg (NEGATIVE) Urine Benzodiazepines Screen Neg (NEGATIVE) Urine Cocaine Screen Neg (NEGATIVE) Urine Cannabinoids Screen Neg (NEGATIVE) Other Laboratory Tests 08/25/24 04:50 Brief Hx & Hospital Course: History of Present Illness ON ADMISSION Patient is a 49-year-old male with past medical history of 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 According to the patient, he took new medication carvedilol along with his old medication losartan in the a.m., later in the day he noted his blood pressure to be 200/?, he subsequently called his PCP who told the patient go to the ER. Patient notes having dietary indiscretions and consuming increased salt as of late. On review of systems patient is complaining of palpitations. Notes intentional weight loss of 20 lb in the last 3 months. started on BP meds. toelrated well. BP were well for over 24 hours. MRI BRAIN IMPRESSION: 1. Redemonstrated are hyperintense T2 signal changes in the supratentorial white matter, mostly in the periventricular and deep white matter. These have the appearance of demyelinating plaques. Clinical and laboratory correlation is recommended. 2. There are cystic areas centrally in the involved areas in the bilateral shah radiata which may represent burnt-out plaques versus chronic lacunar infarcts. HS:Y Condition at Discharge: Stable Final Diagnosis/Problems List HTN Discharge Disposition: Home Discharge Instruct/Medications Diet: Regular Diet comment: low salt diet Activity: No Restrictions, As Tolerated Follow Up/Referral: Fu with PCP in 2-3 days. Discharge Statement: "Patient was advised to return to the ER or call 911 if any headaches, dizziness, shortness of breath, chest pain, abdominal pain, bleeding, fevers, or worsening of medical condition. Patient was counseled about treatment plan, medications, possible side effects, patientverbalized understanding. All questions were answered to the best of my ability. This discharge took greater then 30 minutes in planning, reviewing documentation, counseling the patient, and discussing with other team members." ASSESSMENT ASSESSMENT Assessment HTN Date of Service: Aug 25, 2024 Billing Provider: CHEO WILHELM MD Common Visit Codes: 01110-JQH/OBS DISCH DAY >30min CHEO WILHELM MD Aug 25, 2024 15:48
[2024-08-30 17:06] LABS: Renin Activity 0.794 ng/mL/hr (.)
== END 2024-08-25 14:20 | disposition home or self-care (01) | DRG 199 ==
LOC: ER 11:14 → EDBD 11:14 → OVERFLOW 22:18 → WEST WING 22:21
PROVIDERS: ADMIT Student in an Organized Health Care Education/Training Program; ATTEND Student in an Organized Health Care Education/Training Program
DX: I16.0 Hypertensive urgency (principal); E78.5 Hyperlipidemia, unspecified; Z82.49 Family history of ischemic heart disease and other diseases of the circulatory system; Z80.9 Family history of malignant neoplasm, unspecified; Z88.8 Allergy status to other drugs, medicaments and biological substances; Z79.82 Long term (current) use of aspirin; Z79.899 Other long term (current) drug therapy
CPT/HCPCS: 36415; 70450; 70551; 71046; 80048; 80053; 80061; 80307; 81001; 82088; 83735; 83880; 84244; 84443; 84484; 85025; 99291; G0378

== ENCOUNTER 2024-11-20 10:17 | Emergency (ER) | payer MEDICAID, SELFPAY ==
[~2024-11-20] VITALS: Ht 182.9 cm; Wt 102.5 kg
[~2024-11-20 10:17] MED LIST changes: +CARV3.1240 PO; +HYDR25TA5 PO; -LISI20TA56 PO; +LOSA-534 PO
--- NOTE | 2024-11-20 10:44 | ED.PDOC ---
HPI Allergic reaction HPI Comments 49 year old male presents to the ED with a chief complaint of allergic reaction onset last night. Patient states he believes he is experiencing allergic reaction to Lisinopril. Takes Lisinopril and Losartan for HTN. Currently experiencing facial swelling, with diffused hives, shortness of breath. Upon ED arrival BP was 152/108. PMHx HTN, CVA, HLD. Denies chest pain, dizziness, nausea, vomiting, diarrhea, dizziness, blurry vision, fevers. No other symptoms or modifying factors present at this time. Chief Complaint: Allergic Reaction Time Seen by MD: 10:37 Reviewed Notes: Nurses Notes, Medications, Allergies Allergies: Coded Allergies: NOAH Inhibitors (Verified Allergy, Unknown, 08/24/24) Home Meds Active Scripts Diphenhydramine Hcl (Benadryl Allergy) 25 Mg Cap, 25 MG PO AMHY for 3 Days, #10 CAP Prov:CHARANJIT VARGAS MD 11/20/24 Methylprednisolone (Medrol Dosepak) 4 Mg Fletcher, 4 MG PO UD, #21 TAB UAD Prov:CHARANJIT VARGAS MD 11/20/24 Hctz (Hydrochlorothiazide) 25 Mg Tab, 12.5 MG PO DAILY for 30 Days, #15 TAB Prov:CHEO WILHELM MD 08/25/24 Losartan Potassium (Losartan Potassium) 50 Mg Tab, 50 MG PO DAILY for 30 Days, #30 TAB Prov:CHEO WILHELM MD 08/25/24 Nifedipine (Nifedipine Er) 30 Mg Tab, 60 MG PO DAILY for 30 Days, #60 TAB Prov:CHEO WILHELM MD 08/25/24 Clopidogrel Bisulfate (CLOPIDOGREL) 75 Mg Tab, 75 MG PO DAILY for 21 Days, #21 TAB Prov:PATRICIA TAN RESIDENT 05/02/24 Atorvastatin Calcium (ATORVASTATIN CALCIUM) 20 Mg Tab, 40 MG PO HS for 30 Days, #60 TAB 2 Refills Prov:PATRICIA TAN 05/02/24 Aspirin (Aspirin Low Dose) 81 Mg Tab, 81 MG PO DAILY for 30 Days, #30 TAB Prov:PATRICIA TAN 05/02/24 Reported Medications Carvedilol (Carvedilol) 3.125 Mg Tab, 1 TAB PO BID, #60 TAB 3 Refills 08/24/24 Information Source: Patient Mode of Arrival: Ambulatory Severity: Moderate SOB: Moderate Timing: Days Duration: Since onset Prehospital treatment: None Location: Face Exposed to: Medication Developed: Facial Swelling, Rash, Shortness of Breath Modyifying Factors: None Associated Sign and Symptoms: None Past Medical History PAST MEDICAL HISTORY: CVA, High Lipids, HTN Surgical History: Denies all surgeries Family History Family History: Family hx of Cancer, Family hx of heart tracie Social History Smoker: Non-Smoker Alcohol: Denies ETOH Use Drugs: Denies Drug Use Lives In: Home Constitutional: denies: chills, diaphoresis, fatigue, fever, malaise, sweats, weakness, others EENTM: denies: blurred vision, double vision, ear bleeding, ear discharge, ear drainage, ear pain, ear ringing, eye pain, eye redness, hearing loss, mouth pain, mouth swelling, nasal discharge, nose bleeding, nose congestion, nose pain, photophobia, tearing, throat pain, throat swelling, voice changes, others Respiratory: reports: shortness of breath; denies: cough, hemoptysis, orthopnea, SOB at rest, SOB with excertion, stridor, wheezing, others Cardiovascular: denies: chest pain, dizzy spells, diaphoresis, Dyspnea on exertion, edema, irregular heart beat, left arm pain, lightheadedness, palpitations, PND, syncope, others Gastrointestinal: denies: abdomen distended, abdominal pain, blood streaked bowels, constipated, diarrhea, dysphagia, difficulty swallowing, hematemesis, melena, nausea, poor appetite, poor fluid intake, rectal bleeding, rectal pain, vomiting, others Genitourinary: denies: burning, dysuria, flank pain, frequency, hematuria, incontinence, penile discharge, penile sore, pain, testicle pain, testicle swelling, urgency, others Neurological: denies: dizziness, fainting, headache, left sided numbness, left sided weakness, numbness, paresthesia, pre-existing deficit, right sided numbness, right sided weakness, seizure, speech problems, tingling, tremors, weakness, others Musculoskeletal: denies: back pain, gout, joint pain, joint swelling, muscle pain, muscle stiffness, neck pain, others Integumetry: reports: rash, others (facial swelling); denies: bruises, change in color, change in hair/nails, dryness, laceration, lesions, lumps, wounds Allergic/Immunocompromised: denies: Difficulty Healing, Frequent Infections, Hives, Itching, others Hematologic/Lymphatic: denies: anemia, blood clots, easy bleeding, easy bruising, swollen glands, others Endocrine: denies: excessive hunger, excessive sweating, excessive thirst, excessive urination, flushing, intolerance to cold, intolerance to heat, un explained weight gain, unexplained weight loss, others Psychiatric: denies: anxiety, bipolar disorder, depression, hopeless, panic disorder, schizophrenia, sleepless, suicidal, others All Other Systems: Reviewed and Negative Physical Exam General Appearance: Mild Distress HEENT: Pharynx Normal, TMs Normal, Other (Mild right periorbital swelling with some swelling around the lips) Neck: Full Range of Motion, Non-Tender, Normal, Normal Inspection Respiratory: Chest Non-Tender, Lungs Clear, No Accessory Muscle Use, No Respiratory Distress, Normal Breath Sounds Cardiovascular: No Edema, No JVD, No Murmur, No Gallop, Normal Peripheral Pulses, Regular Rate/Rhythm Breast Exam: Deferred Gastrointestinal: No Organomegaly, Non Tender, No Pulsatile Mass, Normal Bowel Sounds, Soft Genitalia: Deferred Pelvic: Deferred Rectal: Deferred Extremities: No calf tenderness, Normal capillary refill, Normal inspection, Normal range of motion, Non-tender, No pedal edema Musculoskeletal : Apperance: Normal Neurologic: Alert, insurance agency manager II-XII nml as Tested, No Motor Deficits, Normal Affect, Normal Mood, No Sensory Deficits Cerebellar Function: Normal Reflexes: Normal Skin: Dry, Rash (Mild urticaria), Warm Lymphatic: No Adenopathy Was a procedure done? Was a procedure done?: No Differential diagnosis (all) Differential Diagnosis: Anaphylaxis, Angioedema, Bronchospasm, Drug Reaction, Urticaria X-Ray, Labs, Meds, VS Vital Signs Date Time Temp Pulse Resp B/P (MAP) Pulse Ox O2 Delivery O2 Flow Rate FiO2 11/20/24 11:53 155/101 11/20/24 10:31 99.3 85 21 152/108 (123) 96 99.3 Current Medications Medications (Trade) Dose Ordered Sig/Joni Route Start Time Stop Time Status Last Admin Sodium Chloride 500 ml @ 500 mls/hr Q1H ONCE IV 11/20/24 10:45 11/20/24 11:44 DC 11/20/24 10:52 Clonidine HCl (Catapres Tablet) 0.2 mg ONCE ONCE PO 11/20/24 10:45 11/20/24 10:46 DC 11/20/24 11:53 Diphenhydramine HCl (Benadryl Injection) 25 mg ONCE ONCE IV 11/20/24 10:45 11/20/24 10:46 DC 11/20/24 10:52 Methylprednisolone Sodium Succinate (Solu Medrol) 40 mg ONCE ONCE IV 11/20/24 12:00 11/20/24 12:01 DC 11/20/24 11:56 Methylprednisolone Sodium Succinate (Solu Medrol) 40 mg ONCE ONCE IV 11/20/24 12:00 11/20/24 12:01 DC 11/20/24 11:56 Methylprednisolone Sodium Succinate (Solu Medrol) 40 mg ONCE ONCE IV 11/20/24 12:00 11/20/24 12:01 DC 11/20/24 11:56 IV Hep-Lock was established The patient was given normal saline at a 500 cc bolus The patient was hypertensive so was given clonidine 0.2 mg by mouth The patient was given Solu-Medrol IV push as well as Benadryl for the allergic reaction The patient was being discharged on a Medrol Dosepak as well as Benadryl The patient will return to the emergency department's the condition worsens The patient understands and agrees with the management. Time of 1ST Reevaluation: 11:07 Reevaluation 1ST: Unchanged Patient Education/Counseling: Diagnosis, Treatment, Prognosis, Need For Follow Up Family Education/Counseling: No Family Present Departure 1 Departure Time of Disposition: 12:24 Impression: Primary Impression: Acute allergic reaction Qualified Codes: T78.40XA - Allergy, unspecified, initial encounter Disposition: HOME / SELF CARE / HOMELESS Condition: Fair e-Prescriptions Diphenhydramine Hcl (Benadryl Allergy) 25 Mg Cap 25 MG PO AMHY for 3 Days, #10 CAP Prov: CHARANJIT VARGAS MD 11/20/24 Methylprednisolone (Medrol Dosepak) 4 Mg Fletcher 4 MG PO UD, #21 TAB UAD Prov: CHARANJIT VARGAS MD 11/20/24 Discharged With: Self Critical Care Note Critical Care Time?: No Stability Stability form required: No Heart Score Heart Score: Heart Score Response (Comments) Value History N/A 0 EKG N/A 0 Age N/A 0 Risk Factors N/A 0 Troponin N/A 0 Total 0 I personally scribed for CHARANJIT VARGAS MD ([email or web address]) on 11/20/24 at 10:44. Electronically submitted by Dang Villegas ([email or web address]). CHARANJIT VARGAS MD Nov 20, 2024 10:44
[2024-11-20] MEDS: SODIUM CHLORIDE 0.9% 500 ML IV ONE (10:52)
[2024-11-20] MEDS: diphenhdrAMINE HCL 50 MG/1 ML VL IV ONE (10:52)
[2024-11-20] MEDS ORDERED: METH4PAK PO (11:19)
[2024-11-20] MEDS ORDERED: DIPH25CA66 PO (11:20)
[2024-11-20] MEDS: methylPREDNISolone SOD SUCC 125 MG/2 ML VL IV ONE (11:25)
[2024-11-20] MEDS ORDERED: methylPREDNISolone SOD SUCC 40 MG/ML VL IM ONE (11:30)
[2024-11-20] MEDS: cloNIDine HCL 0.1 MG TAB PO ONE (11:53)
[2024-11-20] MEDS: methylPREDNISolone SOD SUCC 40 MG/ML VL IV ONE ×3 (11:56)
[2024-11-20 12:49] VITALS: BP 127/92; TEMP 98.7
[2024-11-20 12:50] VITALS: PULSE 76; RESP 16; O2SAT 97
== END 2024-11-20 13:17 | disposition home or self-care (01) ==
LOC: ER 10:17
DX: T78.49XA Other allergy, initial encounter (principal); I10 Essential (primary) hypertension; E78.5 Hyperlipidemia, unspecified; Z79.82 Long term (current) use of aspirin; Z79.899 Other long term (current) drug therapy; Z86.73 Personal history of transient ischemic attack (TIA), and cerebral infarction without residual deficits; X58.XXXA Exposure to other specified factors, initial encounter
CPT/HCPCS: 96361; 96374; 96375; 99284; J1200; J2919; J7040